=== PATIENT | female | born 1960 | race African-American/Black ===

== ENCOUNTER → 2016-11-20 | Day surgery (SDC) | payer BC ==
[~2016-11-20] VITALS: Ht 157.5 cm; Wt 79.4 kg
[~2016-11-20] MED LIST: *morphine SULFATE 8 MG/ML PERIprocedure ONLY ONE; ACETAMINOPHEN/HYDROcodone 325 MG/5 MG TAB PO PRN; BACITRACIN TOP OINT 15 GM TUBE ONE; BUPIVACAINE HCL PF 0.25% 30 ML VIAL ONE; CHLORHEXIDINE GLUCONATE 2 % 1 PACK (2 CLOTHS) TOPICAL PRN; CHLORHEXIDINE GLUCONATE 4% SOLN 120 ML BTL TOPICAL SCH; FAMOTIDINE 20 MG/2 ML VIAL ONE; INSULIN HUMAN REGULAR 1,000 UNITS/10 ML VIAL SQ PRN; KETOROLAC TROMETHAMINE 30 MG/ML (IVP) VIAL IVP ONE; LACTATED RINGER'S 1000 ML IV PRN; LIDOCAINE HCL 2% 50 ML VIAL ONE; METOPROLOL TARTRATE 25 MG TAB PO PRN; MIDAZOLAM HCL 2 MG/2 ML VIAL ONE; MORPHINE SULFATE 4 MG/ML INJ IV PUSH PRN; NORC5TAB PO; ONDANSETRON HCL 4 MG/2 ML VIAL IV PRN; ONDANSETRON HCL 4 MG/2 ML VIAL IV PUSH ONE; POVIDONE IODINE 5% (ANTISEPSIS KIT) 4 APPLICATIONS EACH NARE PRN; PROPOFOL 200 MG/20 ML AMP IV ONE; SODIUM CHLORID 0.9% 500 ML IV PRN; SODIUM CHLORIDE 0.9% FLUSH 10 ML FLUSH IV FLUSH PRN; SODIUM CHLORIDE 0.9% FLUSH 10 ML FLUSH IV FLUSH SCH; TRIAMCINOLONE ACETONIDE 40 MG/ML VIAL ONE; VANCOMYCIN 1000 MG/NS 250 ML (for <70 kg) IV SCH; ZOFR4TAB PO; ceFAZolin 2 GM PREMIX 50 ML IV SCH; ePHEDrine/NS 25 MG/5 ML SYR IV ONE; fentaNYL CITRATE 250 MCG/5 ML AMP ONE
[2016-11-20 09:01] VITALS: BP 125/55; PULSE 60; RESP 16; TEMP 98.9; O2SAT 99
[2016-11-20 09:29] LABS: BASOPHIL # 0.1 TH/MM3 (0-0.2); EOSINOPHIL # 0.1 TH/MM3 (0-0.4); EOSINOPHIL % 2.1 % (0.0-4.0); HEMATOCRIT 35.1 % (35.0-46.0); HEMO FLAGS DIFF FINAL; LYMPH % 35.4 % (9.0-44.0); MEAN CELL VOLUME 83.7 FL (80.0-100.0); MEAN CORPUSCULAR HEMOGLOBIN 28.8 PG (27.0-34.0); MEAN CORPUSCULAR HGB CONC 34.4 % (32.0-36.0); MONO % 7.4 % (0.0-8.0); NEUT % 54.1 % (16.0-70.0); PLATELET COUNT 282 TH/MM3 (150-450); RED BLOOD COUNT 4.19 MIL/MM3 (4.00-5.30); RED CELL DISTRIBUTION WIDTH 16.4 % (11.6-17.2); WHITE BLOOD COUNT 5.5 TH/MM3 (4.0-11.0)
--- NOTE | 2016-11-20 10:29 | EKG ---
Date Performed: 11/20/2016 Time Performed: 08:31:44 PTAGE: 56 years EKG: Sinus rhythm NONSPECIFIC T-WAVE ABNORMALITY BORDERLINE ECG PREVIOUS TRACING : 05/27/2010 08.41 DOCTOR: Mane Will Interpretating Date/Time 11/20/2016 10:29:00
--- NOTE | 2016-11-20 14:04 | PD.OP ---
cc: Tacho Shankar Jr., MD Operative Report Date of Surgery: Nov 20, 2016 Preoperative Diagnosis: Right forearm intramuscular lipoma Postoperative Diagnosis: Same Procedure: Excision of intramuscular lipoma right forearm Anesthesia: Gen. Surgeon: Tacho Shankar Scroll Assembler(s): Staff Resident Surgeon: None Operation and Findings: DETAILS OF PROCEDURE This is a 56-year-old female with a right intramuscular lipoma the right forearm. She reports paresthesia pain and numbness along the radial nerve distribution. Surveillance imaging over the past 6 months reveal no change in the size or lipomatous characteristics of the lipoma. We discussed operative versus nonoperative treatment options. She'll like to proceed with operative excision. Informed consent was obtained. The operative site was marked. He was brought to the OR and placed on the OR table. He was given IV sedation and general endotracheal anesthesia. sHe was placed in the supine position. The arm was prepped with alcohol followed by Douglas and draped in the usual sterile fashion. A timeout procedure wasperformed. He received IV antibiotics. Attention was turned to mobile wad of the right proximal forearm. A 10 cm incision was made directly over the brachioradialis and the mobile wad. Careful dissection was taken down through subcutaneous test tissue and onto the fascia. The brachial radialis were carefully swept along its muscle fibers. There found a large 11 cm x 5 cm lipomatous mass. The superficial branch of the radial nerve was encased into the lipoma capsule and ran through its entire length. Carefully the nerve force teased out and dissected away from the lipoma. Careful hemostasis was obtained. vessels were carefully ligated with electrocautery. After complete excision, the wound was thoroughly irrigated. The wound was closed with 3-0 Vicryl and 3-0 Monocryl. Dermabond was applied to the skin. Sterile dressing was applied. There were no complications. Patient extubated and transferred to recovery in stable condition. Specimen: The lipoma was sent to pathology for analysis Tacho Shankar Jr., MD Nov 20, 2016 14:04
[2016-11-20 15:15] VITALS: BP 102/68; PULSE 56; RESP 20; TEMP 97.6; O2SAT 98
== END | disposition home or self-care (01) ==
LOC: HSDC 07:44
PROVIDERS: ATTEND Orthopaedic Surgery
DX: D17.21 Benign lipomatous neoplasm of skin and subcutaneous tissue of right arm (principal); R94.31 Abnormal electrocardiogram [ECG] [EKG]
CPT/HCPCS: 01810; 25073; 85025; 86850; 86900; 86901; 88304; 93005; J1885; J2250; J2270; J2405; J3010; J3370; J7050; J7120; J3301

== ENCOUNTER 2017-05-31 13:34 | Emergency (ER) | payer BC, OTHER ==
[~2017-05-31 13:34] MED LIST changes: -*morphine SULFATE 8 MG/ML PERIprocedure ONLY ONE; -ACETAMINOPHEN/HYDROcodone 325 MG/5 MG TAB PO PRN; -BACITRACIN TOP OINT 15 GM TUBE ONE; -BUPIVACAINE HCL PF 0.25% 30 ML VIAL ONE; -CHLORHEXIDINE GLUCONATE 2 % 1 PACK (2 CLOTHS) TOPICAL PRN; -CHLORHEXIDINE GLUCONATE 4% SOLN 120 ML BTL TOPICAL SCH; -FAMOTIDINE 20 MG/2 ML VIAL ONE; -INSULIN HUMAN REGULAR 1,000 UNITS/10 ML VIAL SQ PRN; -KETOROLAC TROMETHAMINE 30 MG/ML (IVP) VIAL IVP ONE; -LACTATED RINGER'S 1000 ML IV PRN; -LIDOCAINE HCL 2% 50 ML VIAL ONE; -METOPROLOL TARTRATE 25 MG TAB PO PRN; -MIDAZOLAM HCL 2 MG/2 ML VIAL ONE; -MORPHINE SULFATE 4 MG/ML INJ IV PUSH PRN; -ONDANSETRON HCL 4 MG/2 ML VIAL IV PRN; -ONDANSETRON HCL 4 MG/2 ML VIAL IV PUSH ONE; -POVIDONE IODINE 5% (ANTISEPSIS KIT) 4 APPLICATIONS EACH NARE PRN; -PROPOFOL 200 MG/20 ML AMP IV ONE; -SODIUM CHLORID 0.9% 500 ML IV PRN; -SODIUM CHLORIDE 0.9% FLUSH 10 ML FLUSH IV FLUSH PRN; -SODIUM CHLORIDE 0.9% FLUSH 10 ML FLUSH IV FLUSH SCH; -TRIAMCINOLONE ACETONIDE 40 MG/ML VIAL ONE; -VANCOMYCIN 1000 MG/NS 250 ML (for <70 kg) IV SCH; -ceFAZolin 2 GM PREMIX 50 ML IV SCH; -ePHEDrine/NS 25 MG/5 ML SYR IV ONE; -fentaNYL CITRATE 250 MCG/5 ML AMP ONE
[2017-05-31 13:40] VITALS: BP 128/68; PULSE 68; RESP 20; TEMP 98.8; O2SAT 98
--- NOTE | 2017-05-31 14:19 | PD ---
HPI Chief Complaint: Injury Time Seen by Provider: 13:58 Travel History International Travel<30 days: No Contact w/Intl Traveler<30days: No Traveled to known affect area: No History of Present Illness HPI 56-year-old female presents to the ED for evaluation of 9/10 right-sided low back pain that radiates down the back of the leg to the knee. Onset just before arrival when the patient was attempting to move a glass table. Exacerbated by certain movements. She has been ambulatory since the accident. She denies numbness, tingling, weakness, limitations to range of motion of the extremities, saddle anesthesia, incontinence. She's never injured her back in the past. PFSH Past Medical History Cancer: No Cardiovascular Problems: No Diabetes: No Diminished Hearing: No Endocrine: No Genitourinary: No Hepatitis: No Hiatal Hernia: No Immune Disorder: No Musculoskeletal: No Neurologic: No Psychiatric: No Reproductive: No Respiratory: No Thyroid Disease: No Tetanus Vaccination: < 5 Years Influenza Vaccination: No ?: Not Menopausal: Yes Past Surgical History Abdominal Surgery: Yes (LAPROSCOPIC FOR SCAR TISSUE, APPENDECTOMY) AICD: No Appendectomy: Yes (WITH LOTS OF SCAR TISSUE) Cardiac Surgery: No Section: Yes (X1) Ear Surgery: No Endocrine Surgery: No Eye Surgery: Yes (C SECTION) Gynecologic Surgery: Yes Hysterectomy: No Joint Replacement: No Oral Surgery: No Pacemaker: No Thoracic Surgery: No Other Surgery: Yes Social History Alcohol Use: Yes (ON WEEKENDS) Tobacco Use: No Substance Use: No Allergies-Medications (Allergen,Severity, Reaction): Coded Allergies: No Known Allergies (Verified , 05/31/17) Reported Meds & Prescriptions Reported Meds & Active Scripts Active Flexeril (Cyclobenzaprine HCl) 10 Mg Tab 10 Mg PO TID Ibuprofen 600 Mg Tab 600 Mg PO Q8HR PRN Zofran (Ondansetron HCl) 4 Mg Tab 4 Mg PO Q12HR PRN Elcho (Hydrocodone-Acetaminophen) 5-325 mg Tab 1 Tab PO Q4H PRN Review of Systems Except as stated in HPI: all other systems reviewed are Neg Physical Exam Narrative GENERAL: Well-nourished, well-developed petite, obese black female in no acute distress.. SKIN: Focused skin assessment warm/dry. HEAD: Normocephalic. EYES: No scleral icterus. No injection or drainage. NECK: Supple, trachea midline. No JVD or lymphadenopathy. CARDIOVASCULAR: Regular rate and rhythm without murmurs, gallops, or rubs. RESPIRATORY: Breath sounds equal bilaterally. No accessory muscle use. GASTROINTESTINAL: Abdomen soft, non-tender, nondistended. MUSCULOSKELETAL: No cyanosis, or edema. 5/5 strength in dorsiflexion, plantar flexion, knee and hip flexion bilaterally. Straight leg raise positive on the right. BACK: Tender at the sciatic notch on the right side. No obvious deformity. No CVA tenderness. Data Data Last Documented VS Vital Signs Date Time Temp Pulse Resp B/P (MAP) Pulse Ox O2 Delivery O2 Flow Rate FiO2 05/31/17 15:00 05/31/17 13:40 98.8 68 20 98 Room Air Orders Orders Ibuprofen (Motrin) (05/31/17 14:30) Cyclobenzaprine (Flexeril) (05/31/17 14:30) Acetamin-Hydrocod 325-5 Mg (Elcho 5-325 (05/31/17 14:30) Ed Discharge Order (05/31/17 14:23) MDM Medical Decision Making Medical Screen Exam Complete: Yes Emergency Medical Condition: Yes Differential Diagnosis Low back pain versus muscle spasm versus muscle strain versus radiculopathy versus sciatica versus other Narrative Course 56-year-old female presents to the ED for evaluation of 9/10 right-sided low back pain that radiates down the back of the leg to the knee. Onset just before arrival when the patient was attempting to move a glass table. Exacerbated by certain movements. She has been ambulatory since the accident. She denies numbness, tingling, weakness, limitations to range of motion of the extremities saddle anesthesia, incontinence. She's never injured her back in the past. Vitals reviewed. Physical exam reveals an obese, petite black female in no acute distress. She has tenderness at the right sciatic notch and positive right straight leg raise. There's palpable spasm of the right-sided lumbar musculature. Strength 5/5 in the bilateral lower extremities. This is sciatica and muscle spasm. Patient was administered 5 mg Lortab, 600 mg ibuprofen and 10 mg Flexeril by mouth. She is prescribed a short course of anti -inflammatories and muscle relaxants. She is instructed to return to normal, gentle activity as tolerated, follow up with the neurologist or primary care should symptoms to resolve. She indicated understanding of instructions and is agreeable with the care plan. She is stable and discharged home. Diagnosis Primary Impression: Sciatica Qualified Codes: M54.31 - Sciatica, right side Additional Impression: Muscle spasm Referrals: Neurologist Primary Care Physician Patient Instructions: General Instructions, Sciatica (ED) Additional Instructions: Rest, hydrate. Return to normal, gentle activity as tolerated. A mixture of rest and activity is best for back pain. Take the medication as prescribed. Do not drive while taking muscle relaxers as they may make you drowsy. Ice or heat applied to areas of pain 10-15 minutes a few times a day may help to improve your symptoms. Follow-up with the primary care provider or neurologist. Return to the ED for worsening symptoms or any urgent or emergent medical condition. Med/Other Pt SpecificInfo: Prescription(s) given Scripts Cyclobenzaprine (Flexeril) 10 Mg Tab 10 MG PO TID for Muscle Spasm, #15 TAB 0 Refills Prov: Enrique Agrawal MD 05/31/17 Ibuprofen (Ibuprofen) 600 Mg Tab 600 MG PO Q8HR Y for PAIN, #21 TAB 0 Refills Prov: Enrique Agrawal MD 05/31/17 Disposition: 01 DISCHARGE HOME Condition: Stable Kori Draper May 31, 2017 14:19
[2017-05-31] MEDS ORDERED: IBUP-232 PO (14:23)
[2017-05-31] MEDS ORDERED: CYCL1TAB29 PO (14:23)
[2017-05-31] MEDS ORDERED: IBUPROFEN 600 MG TAB PO ONE (14:30)
[2017-05-31] MEDS ORDERED: CYCLOBENZAPRINE HCL 10 MG TAB PO ONE (14:30)
[2017-05-31] MEDS ORDERED: ACETAMINOPHEN/HYDROcodone 325 MG/5 MG TAB PO ONE (14:30)
== END 2017-05-31 15:01 | disposition home or self-care (01) ==
LOC: PHEFT 13:34
DX: M54.31 Sciatica, right side (principal); M62.830 Muscle spasm of back
CPT/HCPCS: 99283

== ENCOUNTER 2017-10-19 17:20 | Emergency (ER) | payer OTHER ==
[~2017-10-19] VITALS: Ht 157.5 cm; Wt 75.0 kg
[~2017-10-19 17:20] MED LIST changes: +CYCL10TA PO; +IBUP-232 PO
[2017-10-19 17:28] VITALS: BP 162/72; PULSE 76; RESP 16; TEMP 99; O2SAT 98
[2017-10-19] MEDS ORDERED: OSEL75 PO (20:57)
--- NOTE | 2017-10-19 20:57 | PD ---
HPI Chief Complaint: Cold / Flu Symptoms Time Seen by Provider: 20:42 Travel History International Travel<30 days: No Contact w/Intl Traveler<30days: No Traveled to known affect area: No History of Present Illness HPI 57-year-old female here for evaluation of flulike symptoms. Symptoms started yesterday. They are grandchildren at home with upper respiratory symptoms. Patient complains of headache, nasal congestion, sore throat, bilateral ear pain , generalized malaise. She has had a cough productive of clear sputum. She has had a couple of loose bowel movements. No vomiting. No abdominal pain. No rash. She took Tylenol and TheraFlu at home. PFSH Past Medical History Cancer: No Cardiovascular Problems: No Diabetes: No Diminished Hearing: No Endocrine: No Genitourinary: No Hepatitis: No Hiatal Hernia: No Immune Disorder: No Musculoskeletal: No Neurologic: No Psychiatric: No Reproductive: No Respiratory: No Thyroid Disease: No ?: Not Menopausal: Yes Past Surgical History Abdominal Surgery: Yes (LAPROSCOPIC FOR SCAR TISSUE, APPENDECTOMY) AICD: No Appendectomy: Yes (WITH LOTS OF SCAR TISSUE) Cardiac Surgery: No Section: Yes (X1) Ear Surgery: No Endocrine Surgery: No Eye Surgery: Yes (C SECTION) Gynecologic Surgery: Yes Hysterectomy: No Joint Replacement: No Oral Surgery: No Pacemaker: No Thoracic Surgery: No Other Surgery: Yes Social History Alcohol Use: Yes (ON WEEKENDS) Tobacco Use: No Substance Use: No Allergies-Medications (Allergen,Severity, Reaction): Coded Allergies: No Known Allergies (Verified , 05/31/17) Reported Meds & Prescriptions Reported Meds & Active Scripts Active Flexeril (Cyclobenzaprine HCl) 10 Mg Tab 10 Mg PO TID Ibuprofen 600 Mg Tab 600 Mg PO Q8HR PRN Zofran (Ondansetron HCl) 4 Mg Tab 4 Mg PO Q12HR PRN Topmost (Hydrocodone-Acetaminophen) 5-325 mg Tab 1 Tab PO Q4H PRN Review of Systems Except as stated in HPI: all other systems reviewed are Neg Physical Exam Narrative GENERAL: Well-developed, well-nourished, comfortable, no apparent distress. SKIN: Focused skin assessment warm/dry. No rash. HEAD: Atraumatic. Normocephalic. EYES: Pupils equal and round. No scleral icterus. No injection or drainage. ENT: No nasal bleeding or discharge. Mucous membranes pink and moist. Normal pharynx. Bilateral tympanic membranes and external auditory canals are normal. NECK: Trachea midline. No JVD. No nuchal rigidity. CARDIOVASCULAR: Regular rate and rhythm. No murmur appreciated. RESPIRATORY: No accessory muscle use. Clear to auscultation. Breath sounds equal bilaterally. GASTROINTESTINAL: Abdomen soft, non-tender, nondistended. MUSCULOSKELETAL: No obvious deformities. No clubbing. No cyanosis. No edema. NEUROLOGICAL: Awake and alert. No obvious cranial nerve deficits. Motor grossly within normal limits. Normal speech. PSYCHIATRIC: Appropriate mood and affect; insight and judgment normal. Data Data Last Documented VS Vital Signs Date Time Temp Pulse Resp B/P (MAP) Pulse Ox O2 Delivery O2 Flow Rate FiO2 10/19/17 17:28 99.0 76 16 162/72 (102) 98 Orders Orders Group A Rapid Strep Screen (10/19/17 17:31) Influenzae A/B Antigen (10/19/17 17:31) Strep Culture (Group A) (10/19/17 17:35) Ibuprofen (Motrin) (10/19/17 21:00) Oseltamivir (Tamiflu) (10/19/17 21:00) MDM Medical Decision Making Medical Screen Exam Complete: Yes Emergency Medical Condition: Yes Differential Diagnosis Influenza, viral illness, URI, pneumonia Narrative Course Vital signs show heart rate 76, blood pressure 162/72, pulse ox 98% on room air , oral temp of 99F. Influenza swab is negative. Group A strep is negative. Patient is overall well-appearing. She does have nasal congestion and cough. She appears to have a flulike illness. She appears well-hydrated. She is not in any distress. Lung sounds are clear and equal bilaterally. Plan is to start her on Tamiflu and have her follow-up with a primary care physician this week. She was advised to stay hydrated and to keep fever control with Tylenol and ibuprofen. She was informed on when to return to the emergency department. She verbalizes understanding and agreement with plan. Diagnosis Primary Impression: Influenza-like illness Additional Instructions: Stay hydrated with plenty of fluids. Keep fever control with Tylenol and ibuprofen. Follow-up with a primary care physician this week. Return to the emergency department for worsening symptoms or any other concerns. Scripts Oseltamivir (Tamiflu) 75 Mg Cap 75 MG PO BID for Mgmt Viral Infection for 5 Days, #10 CAP 0 Refills Prov: Gaston Ellsworth MD 10/19/17 Disposition: 01 DISCHARGE HOME Condition: Stable Gaston Ellsworth MD Oct 19, 2017 20:57
[2017-10-19] MEDS ORDERED: IBUPROFEN 600 MG TAB PO ONE (21:00)
[2017-10-19] MEDS ORDERED: OSELTAMIVIR PHOSPHATE 75 MG CAP PO ONE (21:00)
== END 2017-10-19 21:25 | disposition home or self-care (01) ==
LOC: NEPE 17:20
DX: R09.81 Nasal congestion (principal); R51 Headache; J02.9 Acute pharyngitis, unspecified; H92.03 Otalgia, bilateral; R05 Cough
CPT/HCPCS: 87081; 87804; 87880; 99283